=== PATIENT | male | born 1995 | race Caucasian/White ===

== ENCOUNTER 2018-10-06 13:51 | Emergency (ER) | payer SELFPAY ==
[~2018-10-06] VITALS: Ht 172.7 cm; Wt 68.0 kg
[~2018-10-06 13:51] MED LIST: ACHD5005 PO; ACNE MED; ALBU8.5H2 IH; AMOX-358 PO; AMOX500C2 PO; EPI PEN; HYDR25CA92 PO; HYOS0.1216 PO; IBUP-30 PO; IBUP200C14 PO; IBUP800T26 PO; LEVE500T PO; METH500T7 PO; NAPR-915 PO; NEOM10DR11 OT; ONDA4TAB11 PO; PROM25SU10 PR; RT-ALBUINH INH; [UNRECOGNIZED DRUG - CODE] OT; [UNRECOGNIZED DRUG - REMARK] TOP
[2018-10-06] MEDS ORDERED: AMOX-358 PO (14:20)
--- NOTE | 2018-10-06 14:20 | ED EENT ---
History of Present Illness General Chief Complaint: Head/Cervical Problems Stated Complaint: HEAD AND EAR PAIN Nursing Triage Note: PT PRESENTS TO ER WITH COMPLAINT OF HEADACHE AND EAR PAIN. Source: patient Exam Limitations: no limitations History of Present Illness Date Seen by Provider: Oct 06, 2018 Time Seen by Provider: 14:16 Initial Comments Patient is a 23-year-old male who presents to the emergency room with complaints of left earache is causing headache for the past week. He denies any fevers, nausea vomiting, neurological changes. Reports history of frequent ear infections as a child requiring tubes in his ears. Timing/Duration: last week Location: ear (L) Prearrival Treatment: no prearrival treatment Associated Symptoms: denies symptoms Allergies and Home Medications Allergies Coded Allergies: bee venom (honey bee) (Verified Allergy, Unknown, 04/12/15) Patient Home Medication List Home Medication List Reviewed: Yes Review of Systems Review of Systems Constitutional: see HPI; No chills, No fever Ears: See HPI, Pain (left ear) Neurological: See HPI, Headache All Other Systems Reviewed Negative Unless Noted: Yes Past Shqutmk-Ahcczk-Tjbkpo Hx Past Med/Social Hx: Reviewed Nursing Past Med/Soc Hx Patient Social History Alcohol Use: Denies Use Recreational Drug Use: No Smoking Status: Current Everyday Smoker Type Used: Cigarettes Recent Foreign Travel: No Contact w/Someone Who Travel: No Recent Infectious Disease Expo: No Recent Hopitalizations: No Immunizations Up To Date Tetanus Booster (TDap): More than 5yrs PED Vaccines UTD: Yes Date of Influenza Vaccine: Aug 21, 2013 Seasonal Allergies Seasonal Allergies: Yes Past Medical History Surgeries: Yes (BMT'S; CIRCUMCISION) Ear Surgery Respiratory: Yes (USES INHALER PRN) Asthma Currently Using CPAP: No Currently Using BIPAP: No Cardiac: Yes (CHRONIC CHEST WALL PAIN; SUBJECTIVE ARRHYTHMIA/PALPITATIONS) Angina Neurological: Yes Reproductive Disorders: No Sexually Transmitted Disease: No HIV/AIDS: No Gastrointestinal: No Ulcer Musculoskeletal: Yes (LEFT WRIST SALTER ARDON TYPE 4) Scoliosis, Fractures Endocrine: No Cancer: No Psychosocial: Yes Anxiety Integumentary: Yes (SEVERE CYSTIC ACNE) Blood Disorders: No Adverse Reaction/Blood Tranf: No Family Medical History Reviewed Nursing Family Hx FH: heart disease 19 FATHER Physical Exam Vital Signs Vital Signs - First Documented 10/06/18 14:10 Temp 97.2 Pulse 71 Resp 20 B/P (MAP) 126/62 (83) Pulse Ox 99 O2 Delivery Room Air Height, Weight, BMI Height: 5'8.00" Weight: 150lbs. 8.0oz. 68.864078go; 19.76 BMI Method:Stated General Appearance: WD/WN, no apparent distress Eyes: bilateral eye normal inspection, bilateral eye PERRL, bilateral eye EOMI Ears: right ear auricle normal, right ear canal normal, right ear TM normal; left ear tenderness, left ear TM red, left ear TM bulging Neck: non-tender, full range of motion, supple, normal inspection Cardiovascular: normal peripheral pulses, regular rate, rhythm, no edema, no gallop, no JVD, no murmur Respiratory: chest non-tender, lungs clear, normal breath sounds, no respiratory distress, no accessory muscle use Neurologic/Psychiatric: alert, normal mood/affect, oriented x 3 Skin: normal color, warm/dry Progress/Results/Core Measures Results/Orders Vital Signs/I&O 10/06/18 14:10 Temp 97.2 Pulse 71 Resp 20 B/P (MAP) 126/62 (83) Pulse Ox 99 O2 Delivery Room Air Blood Pressure Mean: 83 Departure Impression Primary Impression: Left otitis media Disposition: 01 HOME, SELF-CARE Condition: Stable/Unchanged Departure-Patient Inst. Decision time for Depature: 14:19 Referrals: NO,LOCAL PHYSICIAN (PCP/Family) Primary Care Physician Patient Instructions: Ear Infections (Otitis Media) (DC) Add. Discharge Instructions: Complete the entire course of antibiotics. You may use ibuprofen and Tylenol as directed by the bottle for pain relief. Follow-up with your primary care provider within 1 week for recheck. Return back to the emergency room for any worsening symptoms or concerns as needed. All discharge instructions reviewed with patient and/or family. Voiced understanding. Scripts Amoxicillin/Potassium Clav (Augmentin 875-125 Tablet) 1 Each Tablet 1 EACH PO BID for 14 Days, #14 TAB Prov: NAIF CALIX 10/06/18 NAIF CALIX Oct 06, 2018 14:20
[2018-10-06 14:30] VITALS: BP 126/62
[2018-10-06] MEDS ORDERED: HYDROcodone/APAP 5 MG/325 MG (LORTAB) TAB PO ONE (14:30)
== END 2018-10-06 14:30 | disposition home or self-care (01) ==
LOC: EDUNIT# 13:51 → ER 13:52
DX: H66.92 Otitis media, unspecified, left ear (principal); J45.909 Unspecified asthma, uncomplicated; F41.9 Anxiety disorder, unspecified; F17.210 Nicotine dependence, cigarettes, uncomplicated; Z98.890 Other specified postprocedural states; Z87.19 Personal history of other diseases of the digestive system; Z82.49 Family history of ischemic heart disease and other diseases of the circulatory system
CPT/HCPCS: 99283

== ENCOUNTER 2018-12-15 10:31 | Emergency (ER) | payer BC, OTHER ==
[~2018-12-15] VITALS: Ht 172.7 cm; Wt 68.3 kg
[2018-12-15] MEDS ORDERED: TRAM-42 PO (11:18)
--- NOTE | 2018-12-15 11:18 | ED Lower Extremity ---
General Chief Complaint: Lower Extremity Stated Complaint: L LEG PAIN Nursing Triage Note: PT STATES HIS DOG KNOCKED HIM DOWN SATURDAY AND HE FELL HURTING HIS LT LEG. PT AMBULATED TO RM 7 W/O ASSISTANCE. Nursing Sepsis Screen: No Definite Risk Source: patient Exam Limitations: no limitations History of Present Illness Date Seen by Provider: Dec 15, 2018 Time Seen by Provider: 11:13 Initial Comments To ER with reports of left leg pain. His dog knocked him down 2 days ago, he landed on the left hip and hit the left lower leg on a rock. He was able to get up and ambulate but he's had some persistent pain in the left hip and left lower leg and numbness in the left foot. Onset: other (2 days ago) Severity: moderate Pain/Injury Location: left leg Method of Injury: fell Modifying Factors: Worse With Movement Allergies and Home Medications Allergies Coded Allergies: bee venom (honey bee) (Verified Allergy, Unknown, 04/12/15) Home Medications Amoxicillin/Potassium Clav 1 Each Tablet, 1 EACH PO BID Prescribed by: NIAF CALIX on 10/06/18 1420 Patient Home Medication List Home Medication List Reviewed: Yes Review of Systems Constitutional: see HPI EENTM: see HPI Respiratory: no symptoms reported Cardiovascular: no symptoms reported Genitourinary: no symptoms reported Musculoskeletal: see HPI Skin: no symptoms reported Psychiatric/Neurological: No Symptoms Reported Past Rhygfak-Dtdmuw-Ilvttw Hx Patient Social History Alcohol Use: Denies Use Recreational Drug Use: No Smoking Status: Current Everyday Smoker Type Used: Cigarettes Recent Foreign Travel: No Contact w/Someone Who Travel: No Recent Infectious Disease Expo: No Recent Hopitalizations: No Immunizations Up To Date Tetanus Booster (TDap): More than 5yrs PED Vaccines UTD: Yes Date of Influenza Vaccine: Aug 21, 2013 Seasonal Allergies Seasonal Allergies: Yes Past Medical History Surgeries: Yes (BMT'S; CIRCUMCISION) Ear Surgery Respiratory: Yes (USES INHALER PRN) Asthma Currently Using CPAP: No Currently Using BIPAP: No Cardiac: Yes (CHRONIC CHEST WALL PAIN; SUBJECTIVE ARRHYTHMIA/PALPITATIONS) Angina Neurological: Yes Reproductive Disorders: No Sexually Transmitted Disease: No HIV/AIDS: No Gastrointestinal: No Ulcer Musculoskeletal: 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 8.0oz. 68.463158du; 19.76 BMI Method:Stated General Appearance: WD/WN, no apparent distress Neck: non-tender, full range of motion Hips: right hip non-tender; left hip normal inspection, left hip normal range of motion, left hip pain, left hip other (no ecchymosis or swelling) Legs: left leg normal inspection, left leg normal range of motion, left leg other (left lateral fibula is tender to palpation but there is no ecchymosis deformity or swelling) Knees: bilateral knee non-tender, bilateral knee normal inspection, bilateral knee normal range of motion Ankles: bilateral ankle non-tender, bilateral ankle normal inspection, bilateral ankle normal range of motion Feet: bilateral foot non-tender, bilateral foot normal inspection, bilateral foot normal range of motion Neurologic/Psychiatric: alert, normal mood/affect, oriented x 3 Skin: normal color, warm/dry Progress/Results/Core Measures Results/Orders My Orders Orders - DIONI RIOS APRN Hip, Left, 2 Views (12/15/18 11:13) Tibia/Fibula, Left, 2 Views (12/15/18 11:13) Vital Signs/I&O 12/15/18 10:46 Temp 97.2 Pulse 81 Resp 18 B/P (MAP) 127/85 (99) Pulse Ox 100 O2 Delivery Room Air Blood Pressure Mean: 99 Departure Impression Primary Impression: Contusion of hip Qualified Codes: S70.02XA - Contusion of left hip, initial encounter Additional Impression: Leg pain Qualified Codes: M79.605 - Pain in left leg Disposition: 01 HOME, SELF-CARE Condition: Stable Departure-Patient Inst. Decision time for Depature: 11:17 Referrals: NO,LOCAL PHYSICIAN (PCP/Family) Primary Care Physician Patient Instructions: Contusion (DC) Add. Discharge Instructions: 1. Return to ER for any concerns 2. Follow-up with your doctor later this week for recheck All discharge instructions reviewed with patient and/or family. Voiced understanding. Scripts Tramadol HCl (Ultram) 50 Mg Tablet 50 MG PO Q6H PRN for PAIN-MODERATE TO SEVERE, #10 TAB Prov: DIONI RIOS APRN 12/15/18 DIONI RIOS APRN Dec 15, 2018 11:18
--- NOTE | 2018-12-15 11:57 | Diagnostic Imaging Report ---
INDICATION: Fall FINDINGS: There is no fracture, dislocation or acute appearing articular incongruity. IMPRESSION: No acute appearing abnormality. Dictated by: Dictated on workstation # [id number]
[2018-12-15 12:33] VITALS: BP 127/85
--- NOTE | 2018-12-15 12:38 | Diagnostic Imaging Report ---
INDICATION: Injury with pain. FINDINGS: Femoral head is directed into the acetabulum. No fracture or dislocation. The obturator ring is intact. No avulsion. IMPRESSION: Unremarkable two-view left hip. Dictated by: Dictated on workstation # [id number]
== END 2018-12-15 12:33 | disposition home or self-care (01) ==
LOC: EDUNIT# 10:31 → ER 10:32
DX: S70.02XA Contusion of left hip, initial encounter (principal); M79.605 Pain in left leg; J45.909 Unspecified asthma, uncomplicated; M41.9 Scoliosis, unspecified; F41.9 Anxiety disorder, unspecified; F17.210 Nicotine dependence, cigarettes, uncomplicated; Z82.49 Family history of ischemic heart disease and other diseases of the circulatory system; Z87.19 Personal history of other diseases of the digestive system; Z98.890 Other specified postprocedural states; W18.31XA Fall on same level due to stepping on an object, initial encounter; W22.09XA Striking against other stationary object, initial encounter
CPT/HCPCS: 73502; 73590

== ENCOUNTER 2020-04-10 07:37 | Emergency (ER) | payer BC ==
[~2020-04-10] VITALS: Ht 172.7 cm; Wt 63.5 kg
[~2020-04-10 07:37] MED LIST changes: +TRAM-42 PO
--- NOTE | 2020-04-10 08:26 | ED Upper Extremity ---
General Chief Complaint: Upper Extremity Stated Complaint: L HAND PAIN Nursing Triage Note: PT AMB TO RM 6 WITH COMPLAINT LEFT WRIST PAIN. STATES WAS MOVING FURNITURE ON SATURDAY AND BEGAN NOT BEING ABLE TO MOVE FINGERS SATURDAY NIGHT. DENIES HITTING EXTREMITY ON ANYTHING. STATES TOOK A MUSCLE RELAXER YESTERDAY AND HAD NO RELIEF. Nursing Sepsis Screen: No Definite Risk Source: patient Exam Limitations: no limitations History of Present Illness Date Seen by Provider: Apr 10, 2020 Time Seen by Provider: 08:15 Initial Comments Pt to ER by [facility] with CC LEft hand pain, loss of ROM x 2 days. Moving furniture but no trauma on Saturday. Previous two fractures 5th metacarpral 2 + years ago. No Fever chills soa. Took flexaril yesterday without relief. No APAP or NSAIDS Allergies and Home Medications Allergies Coded Allergies: bee venom (honey bee) (Verified Allergy, Unknown, 04/12/15) Home Medications Amoxicillin/Potassium Clav 1 Each Tablet, 1 EACH PO BID Prescribed by: NAIF CALIX on 10/06/18 1420 Naproxen 500 Mg Tablet, 500 MG PO BID Prescribed by: TOM GRAYSON on 04/10/20 0833 Tramadol HCl 50 Mg Tablet, 50 MG PO Q6H PRN for PAIN-MODERATE TO SEVERE Prescribed by: DIONI RIOS on 12/15/18 1118 Patient Home Medication List Home Medication List Reviewed: Yes Review of Systems Constitutional: No chills, No fever EENTM: No ear discharge, No ear pain Respiratory: No cough, No short of breath Cardiovascular: No chest pain, No edema Gastrointestinal: No abdominal pain, No nausea All Other Systems Reviewed Negative Unless Noted: Yes Past Rdnnnrl-Qdungx-Rndujo Hx Patient Social History Alcohol Use: Denies Use Recreational Drug Use: Yes Drug of Choice: marijuana Type Used: Cigarettes Recent Foreign Travel: No Contact w/Someone Who Travel: No Recent Infectious Disease Expo: No Recent Hopitalizations: No Immunizations Up To Date Tetanus Booster (TDap): More than 5yrs PED Vaccines UTD: Yes Date of Influenza Vaccine: Aug 21, 2013 Seasonal Allergies Seasonal Allergies: Yes Past Medical History Surgeries: Yes (BMT'S; CIRCUMCISION) Ear Surgery Respiratory: Yes (USES INHALER PRN) Asthma Currently Using CPAP: No Currently Using BIPAP: No Cardiac: Yes (CHRONIC CHEST WALL PAIN; SUBJECTIVE ARRHYTHMIA/PALPITATIONS) Angina Neurological: Yes Reproductive Disorders: No Sexually Transmitted Disease: No HIV/AIDS: No Gastrointestinal: No Ulcer Musculoskeletal: 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 8.0oz. 68.560600ng; 21.00 BMI Method:Stated General Appearance: WD/WN, no apparent distress HEENT: PERRL/EOMI, pharynx normal Neck: full range of motion, normal inspection Cardiovascular: normal peripheral pulses, regular rate, rhythm Respiratory: no respiratory distress, no accessory muscle use Shoulder: normal inspection, non-tender, no evidence of injury, normal ROM Elbow/Forearm: normal inspection, normal ROM, Left, pain (distal left forearm to squeeze.) Hand: normal inspection, Left, bone tenderness (4-5 metacarprals), limited ROM, soft tissue tenderness, stiffness Neurologic/Tendon: normal sensation, responds to pain Neurologic/Psychiatric: no motor/sensory deficits, alert, normal mood/affect, oriented x 3 Skin: normal color, warm/dry Progress/Results/Core Measures Results/Orders My Orders Orders - TOM GRAYSON Hand, Left, 3 Views (04/10/20 08:14) Vital Signs/I&O 04/10/20 07:52 Temp 36.4 Pulse 78 Resp 20 B/P (MAP) 134/77 (96) Pulse Ox 99 O2 Delivery Room Air Blood Pressure Mean: 96 Progress Progress Note : Time: 08:27 Progress Note FX, Sprain/Strain? XR, RICE, Splint x 1 week, NSAIDS and F/U with PCP if no improvement. Diagnostic Imaging Diagonstic Imaging: Xray Plain Films/CT/US/NM/MRI: hand (Left) Comments Old styloid Fx seen on 2014 film. Previous healed 5th digit proximal phalanx fracure deformity. No acute osseus abnormality. NAME: ANNABELLE VALLADARES [facility] REC#: [id number] PT STATUS: REG ER : 1995 PHYSICIAN: TOM GRAYSON MD ADMIT DATE: 04/10/20/ER Draft Date of Exam:04/10/20 HAND, LEFT, 3 VIEWS HISTORY: Left hand injury with pain in the left 5th metacarpal. COMPARISON: 06/23/2014 TECHNIQUE: 3 views of the left hand FINDINGS: No acute fracture or dislocation is seen in the left hand. There is deformity of the left 5th finger proximal phalanx which appears to be from an old trauma. There is persistent flexion of the fingers throughout the exam. Alignment otherwise appears normal. Joint spaces are preserved. There is an old nonunited fracture of the left ulnar styloid process. IMPRESSION: 1. Sequela from old trauma to the left hand with no acute osseous abnormality seen. Dictated on workstation # [id number] Dict: 04/10/20 0838 Trans: 04/10/20 0843 [facility] [id number] Interpreted by: CORY NARANJO MD Electronically signed by: Reviewed: Reviewed by Me Departure Impression Primary Impression: Left hand pain Disposition: 01 HOME, SELF-CARE Condition: Stable Departure-Patient Inst. Decision time for Depature: 08:30 Referrals: NO,LOCAL PHYSICIAN (PCP/Family) Primary Care Physician Patient Instructions: Hand Pain (DC) Add. Discharge Instructions: Wear the splint for the next 1-2 weeks. Take off to bathe and ice. Ice the hand for 1 day, 20 minutes on every 2 hours. Elevate the hand above your heart for swelling or pain. Limit use of hand until pain improves. You may down grade the splint to an elastic wrap in 1 week. Naproxen 500 mg twice a day for 1-2 weeks until pain is gone. Tylenol 1000 mg every 8 hours as needed for breakthrough pain. If not seeing any improvement in 1 week then follow up with your primary doctor for re-evaluation and management. All discharge instructions reviewed with patient and/or family. Voiced understanding. Scripts Naproxen (Naprosyn) 500 Mg Tablet 500 MG PO BID for 14 Days, #30 TAB 0 Refills Prov: TOM GRAYSON 04/10/20 Work/School Note: Work Release Form Date Seen in the Emergency Department: Apr 10, 2020 Return to Work: Apr 11, 2020 Restrictions: Need Release from Doctor Other Restrictions Listed Below: No lift, push or pull more than 5 pounds with the left hand until 04/18/20 TOM GRAYSON Apr 10, 2020 08:26
[2020-04-10] MEDS ORDERED: NAPR-1071 PO (08:33)
--- NOTE | 2020-04-10 08:43 | Diagnostic Imaging Report ---
HISTORY: Left hand injury with pain in the left 5th metacarpal. COMPARISON: 06/23/2014 TECHNIQUE: 3 views of the left hand FINDINGS: No acute fracture or dislocation is seen in the left hand. There is deformity of the left 5th finger proximal phalanx which appears to be from an old trauma. There is persistent flexion of the fingers throughout the exam. Alignment otherwise appears normal. Joint spaces are preserved. There is an old nonunited fracture of the left ulnar styloid process. IMPRESSION: 1. Sequela from old trauma to the left hand with no acute osseous abnormality seen. Dictated by: Dictated on workstation # [id number]
[2020-04-10 08:59] VITALS: BP 112/76
== END 2020-04-10 09:01 | disposition home or self-care (01) ==
LOC: EDUNIT# 07:37 → ER 07:38
DX: M79.642 Pain in left hand (principal); Z82.49 Family history of ischemic heart disease and other diseases of the circulatory system; Z87.81 Personal history of (healed) traumatic fracture
CPT/HCPCS: 73130

== ENCOUNTER → 2020-04-27 | Outpatient (CLI) | payer BC ==
[~2020-04-27] VITALS: Ht 172.7 cm; Wt 63.6 kg
[~2020-04-27] MED LIST changes: +CATHETER FLUSH 10 ML SYR IV PRN; +GADOBUTROL 7.5 MMOL/7.5 ML (GADAVIST) VIAL IV ONE; +IOHEXOL 300 MG/ML 50 ML (OMNIPAQUE 300) VIAL IV ONE; +NAPR-1071 PO
--- NOTE | 2020-04-27 14:25 | Diagnostic Imaging Report ---
INDICATION: Left wrist pain. TECHNIQUE: The patient was brought to the procedure room and placed on the table in the prone position. The dorsum of the left wrist was prepped and draped in the usual sterile fashion. A small amount of 1% lidocaine was utilized for local anesthesia. A 25-gauge butterfly needle was utilized and placed with its tip along the dorsum of the midportion of the scaphoid. A mixture of iodinated contrast, normal saline, and gadolinium was injected under fluoroscopic observation. 1 minute and 3 seconds of fluoroscopic time was utilized during injection as well as ranging of the wrist to ensure adequate migration of the contrast throughout the radiocarpal space. The needle was withdrawn and hemostasis was obtained using manual compression. The patient tolerated the procedure well and was sent to MRI in satisfactory condition. IMPRESSION: Successful fluoroscopically assisted left wrist injection for MRI, as described. Dictated by: Dictated on workstation # [id number]
--- NOTE | 2020-04-27 14:52 | Diagnostic Imaging Report ---
EXAMINATION: Magnetic resonance imaging of the left wrist with intra-articular contrast. DATE: April 27, 2020. COMPARISON: Left wrist arthrogram April 27, 2020. Left hand radiographs April 10, 2020. Left wrist radiographs June 23, 2014. HISTORY: 25-year-old male, injury moving furniture. Ulnar-sided wrist pain extending to the region of the left fifth metacarpal. TECHNIQUE: Magnetic Resonance Imaging sequences were performed of the wrist following the intra-articular administration of contrast. FINDINGS: TRIANGULAR FIBROCARTILAGE COMPLEX: The triangular fibrocartilage disc, dorsal radioulnar ligament, volar radioulnar ligament, ulnolunate ligament, ulnotriquetral ligament, extensor carpi ulnaris tendon and sheath, and meniscal homologue are intact. INTRINSIC LIGAMENTS: The scapholunate and lunotriquetral ligaments are intact. JOINTS: The radiocarpal, intercarpal, and distal radioulnar joints are intact. There is no joint effusion. CARPAL TUNNEL: The flexor retinaculum is unremarkable. The flexor digitorum superficialis and profundus are intact. The median nerve is unremarkable. FLEXOR TENDONS: The flexor carpi ulnaris, flexor pollicis longus, and carpi radialis are intact. EXTENSOR TENDONS: There is fluid in the second and third extensor compartments which is normal following arthrogram procedure. Additional evaluation of the extensor tendons is unremarkable. BONE: There is a nonunited remote prior fracture of the ulnar styloid again noted. There is no adjacent marrow edema. There is no acute fracture, bone contusion, evidence of osteonecrosis, or other bone marrow signal abnormality. BURSAE AND SOFT TISSUES: The bursae and soft tissues surrounding the wrist are within normal limits. IMPRESSION: 1. Remote prior nonunited fracture involving the base of the ulnar styloid without adjacent marrow edema. 2. Intact triangular fibrocartilage complex and intrinsic wrist ligaments. 3. Intact tendons. 4. No acute fracture, bone contusion, or other bone marrow signal abnormality. 5. Unremarkable joint evaluation. Dictated by: Dictated on workstation # [id number]
== END ==
LOC: RAD 12:43
PROVIDERS: ATTEND Nurse Practitioner
DX: S66.395 Other injury of extensor muscle, fascia and tendon of left ring finger at wrist and hand level (principal)
CPT/HCPCS: 25246; 73115; 73222

== ENCOUNTER 2022-01-02 12:59 | Emergency (ER) | payer OTHER ==
[~2022-01-02] VITALS: Ht 35.7 cm; Wt 63.0 kg
[~2022-01-02 12:59] MED LIST changes: -CATHETER FLUSH 10 ML SYR IV PRN; -GADOBUTROL 7.5 MMOL/7.5 ML (GADAVIST) VIAL IV ONE; -IOHEXOL 300 MG/ML 50 ML (OMNIPAQUE 300) VIAL IV ONE; +METH-731 PO; -METH500T7 PO
[2022-01-02 13:05] VITALS: BP 137/79
[2022-01-02] MEDS ORDERED: TETRACAINE 0.5% OPHTH SOLN 4 ML BTL (SINGLE DOSE ONLY) OP ONE (13:45)
--- NOTE | 2022-01-02 13:52 | ED Headache ---
General Chief Complaint: Head/Cervical Problems Stated Complaint: HEADACHE - VISION LOSS Nursing Triage Note: ARRIVED VIA AMB WITH COMPLAINTS OF A HEADACHE THAT STARTED LAST MONTH WITH VISION CHANGES. BOTH PARENTS HAVE RECENTLY OF A BRAIN TUMOR. Source: patient Exam Limitations: no limitations (ROMAN STEIN MED STUDENT) History of Present Illness Date Seen by Provider: Jan 02, 2022 Time Seen by Provider: 13:45 Initial Comments This is an otherwise healthy 26 YO male presenting to the ED with headache and left eye blurriness starting this morning. Pt felt normal when he went to bed at 11:30 last night but when he woke up this morning when his alarm went off at 5:15, he had a pounding headache in his left synagogue radiating to his left forehead. Also has been having blurry vision in the left half of his left eye that has been waxing and waning in intensity. Notes that he feels dizzy and off- balance but is able to ambulate unassisted. No improvement in the pain with Tylenol or Ibuprofen. Denies N/V, CP, SOB, numbness, tingling, or weakness. Pt also says that he had loss of vision in the left lower part of his left eye that he never sought medical care for and has been present ever since. No hx migraines or headaches similar to this. COVID vaccinated but not flu vaccinated. Pt says he is worried because both of his parents recently of meningiomas. Prior Headaches/Recent Trauma: no recent headache/trauma Associated Symptoms: vision changes (ROMAN STEIN MED STUDENT) Initial Comments Patient describes 2 distinct episodes of visual changes. He notes about a month ago a sudden loss of approximately 10% of the lower lateral field of vision of the left eye only. This seems to now be a fixed deficit over the past month. Today he developed a blurry vision of the remaining left half of the field of vision of the left eye only. Vision out of the right eye appears normal. He has had associated headache. Neuro exam is otherwise unremarkable. He denies any injury to the eye. The eye itself is not very painful. He describes a vague discomfort of the eye but no pain with movement or blinking. He is not photophobic. Pupils are equally round and reactive. Patient has heightened concern today because both of his parents within the past 6 months from brain tumors. (RADHA BUCKNER MD) Allergies and Home Medications Allergies Coded Allergies: venom-honey bee (Verified Allergy, Unknown, 04/12/15) Patient Home Medication List Home Medication List Reviewed: Yes (RADHA BUCKNER MD) Amoxicillin/Potassium Clav (Augmentin 875-125 Tablet) 1 Each Tablet, 1 EACH PO BID Prescribed by: NAIF CALIX on 10/06/18 1420 Naproxen (Naprosyn) 500 Mg Tablet, 500 MG PO BID Prescribed by: TOM GRAYSON on 04/10/20 0833 Tramadol HCl (Ultram) 50 Mg Tablet, 50 MG PO Q6H PRN for PAIN-MODERATE TO SEVERE Prescribed by: DOINI RIOS on 12/15/18 1118 Review of Systems Review of Systems Constitutional: No chills, No fever Eyes: Blurred Vision, Vision Changes Ears, Nose, Mouth, Throat: denies ear pain, denies ear discharge Respiratory: No cough, No short of breath Cardiovascular: No chest pain, No palpitations Gastrointestinal: No nausea, No vomiting Genitourinary: no symptoms reported Musculoskeletal: back pain, joint pain Skin: No pruritus, No rash Psychiatric/Neurological: See HPI, Headache; Denies Numbness, Denies Tingling, Denies Weakness (ROMAN STEIN MED STUDENT) All Other Systems Reviewed Negative Unless Noted: Yes (Negative excepted noted.) (ROMAN STEIN MED STUDENT) Past Ithzmhm-Bbaywu-Gnfbye Hx Patient Social History Use of E-Cig and/or Vaping dev: Yes Substance use?: Yes 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 Alcohol Use?: No (ROMAN STEIN MED STUDENT) Immunizations Up To Date Tetanus Booster (TDap): More than 5yrs PED Vaccines UTD: Yes Second COVID19 Vaccination Liu: unknown date COVID19 Vaccine [place] Aide: moderna (ROMAN STEIN MED STUDENT) Seasonal Allergies Seasonal Allergies: Yes (ROMAN STEIN MED STUDENT) Past Medical History Surgeries: Yes (BMT'S; CIRCUMCISION) Ear Surgery Respiratory: Yes (USES INHALER PRN) Asthma Currently Using CPAP: No Currently Using BIPAP: No Cardiac: Yes (CHRONIC CHEST WALL PAIN; SUBJECTIVE ARRHYTHMIA/PALPITATIONS) Angina Neurological: Yes Reproductive Disorders: No Sexually Transmitted Disease: No HIV/AIDS: No Gastrointestinal: No Ulcer 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 8.0oz. 68.580668wn; 494.00 BMI Method:Stated General Appearance: WD/WN, no apparent distress HEENT: PERRL/EOMI, normal ENT inspection; No scleral icterus (R), No scleral icterus (L), No pale conjunctivae (R), No pale conjunctivae (L); other (moist mucous membranes) Neck: full range of motion, normal inspection Cardiovascular: regular rate, rhythm, no murmur Respiratory: lungs clear, normal breath sounds, no respiratory distress, no accessory muscle use Gastrointestinal: non tender, soft; No distended Extremities: normal range of motion, normal inspection Psychiatric: alert, oriented x 3 Crainal Nerves: normal hearing, normal speech, PERRL; No abnormal eye position, No abnormal pupil position, No abnormal speech, No facial asymmetry, No facial droop, No facial paresthesias, No facial weakness, No gaze palsy, No tongue deviation to R; other (cranial nerves II-XII intact) Coordination/Gait: normal finger to nose, normal gait, other (normal heel to robles) Motor/Sensory: no motor deficit, no sensory deficit Skin: normal color, warm/dry Lymphatic: no adenopathy (ROMAN STEIN MED STUDENT) Progress/Results/Core Measures Results/Orders Lab Results Laboratory Tests Test 01/02/22 13:49 Range/Units White Blood Count 5.9 4.3-11.0 10^3/uL Red Blood Count 5.54 H 4.30-5.52 10^6/uL Hemoglobin 13.8 13.3-17.7 g/dL Hematocrit 43 40-54 % Mean Corpuscular Volume 77 L 80-99 fL Mean Corpuscular Hemoglobin 25 25-34 pg Mean Corpuscular Hemoglobin Concent 33 32-36 g/dL Red Cell Distribution Width 13.6 10.0-14.5 % Platelet Count 267 130-400 10^3/uL Mean Platelet Volume 10.5 9.0-12.2 fL Immature Granulocyte % (Auto) 0 % Neutrophils (%) (Auto) 58 42-75 % Lymphocytes (%) (Auto) 25 12-44 % Monocytes (%) (Auto) 12 0-12 % Eosinophils (%) (Auto) 4 0-10 % Basophils (%) (Auto) 1 0-10 % Neutrophils # (Auto) 3.4 1.8-7.8 10^3/uL Lymphocytes # (Auto) 1.5 1.0-4.0 10^3/uL Monocytes # (Auto) 0.7 0.0-1.0 10^3/uL Eosinophils # (Auto) 0.3 0.0-0.3 10^3/uL Basophils # (Auto) 0.0 0.0-0.1 10^3/uL Immature Granulocyte # (Auto) 0.0 0.0-0.1 10^3/uL Prothrombin Time 13.3 12.2-14.7 SEC INR Comment 1.0 0.8-1.4 Activated Partial Thromboplast Time 28 24-35 SEC D-Dimer <= 0.27 0.00-0.49 UG/ML Sodium Level 141 135-145 MMOL/L Potassium Level 3.4 L 3.6-5.0 MMOL/L Chloride Level 105 98-107 MMOL/L Carbon Dioxide Level 23 21-32 MMOL/L Anion Gap 13 5-14 MMOL/L Blood Urea Nitrogen 16 7-18 MG/DL Creatinine 0.84 0.60-1.30 MG/DL Estimat Glomerular Filtration Rate 125 BUN/Creatinine Ratio 19 Glucose Level 103 70-105 MG/DL Calcium Level 9.4 8.5-10.1 MG/DL Corrected Calcium 9.3 8.5-10.1 MG/DL Total Bilirubin 0.3 0.1-1.0 MG/DL Aspartate Amino Transf (AST/SGOT) 18 5-34 U/L Alanine Aminotransferase (ALT/SGPT) 23 0-55 U/L Alkaline Phosphatase 72 40-136 U/L Troponin I < 0.028 <0.028 NG/ML Total Protein 7.1 6.4-8.2 GM/DL Albumin 4.1 3.2-4.5 GM/DL (RADHA BUCKNER MD) My Orders Orders - RADHA BUCKNER MD Ct Head Wo-R/O Stroke (01/02/22 13:42) Ct Angio Head/Neck (01/02/22 13:42) Cbc With Automated Diff (01/02/22 13:42) Comprehensive Metabolic Panel (01/02/22 13:42) Ed Iv/Invasive Line Start (01/02/22 13:42) Tetracaine 0.5% Ophth Zoie Sdv (Tetracai (01/02/22 13:45) Protime With Inr (01/02/22 13:44) Partial Thromboplastin Time (01/02/22 13:44) Fibrin Degradation Products (01/02/22 13:44) Troponin I [place] (01/02/22 13:44) Chest 1 View, Ap/Pa Only (01/02/22 13:44) Ekg Tracing (01/02/22 13:44) Nothing By Mouth (01/02/22 Lunch) Vital Signs Stroke Patient Q15M (01/02/22 13:44) Intake & Output 06,14,22 (01/02/22 13:44) Monitor-Rhythm Ecg Trace Only (01/02/22 13:44) Dysphagia Screening Tool Q10MX1 (01/02/22 13:44) Iohexol Injection (Omnipaque 350 Mg/Ml 1 (01/02/22 14:15) Received Contrast (Hold Metformin- Contr (01/02/22 14:15) Ns (Ivpb) (Sodium Chloride 0.9% Ivpb Bag (01/02/22 14:15) Tropicamide 1% Ophthalmic Soln (Mydriacy (01/02/22 14:45) Ketorolac Injection (Toradol Injection) (01/02/22 15:00) Hs C Reactive Protein (01/02/22 15:26) Erythrocyte Sedimentation Rate (01/02/22 15:26) (RADHA BUCKNER MD) Medications Given in ED Current Medications Medications Dose Ordered Sig/Ten Route Start Time Stop Time Status Last Admin Dose Admin Iohexol 75 ml ONCE ONCE IV 01/02/22 14:15 01/02/22 14:16 DC 01/02/22 14:12 75 ML Ketorolac Tromethamine 15 mg ONCE ONCE IVP 01/02/22 15:00 01/02/22 15:01 DC 01/02/22 14:59 15 MG Sodium Chloride 100 ml ONCE ONCE IV 01/02/22 14:15 01/02/22 14:16 DC 01/02/22 14:13 80 ML Tetracaine HCl 1 OR 2 DROPS INTO AFFEC... ONCE ONCE OP 01/02/22 13:45 01/02/22 13:46 DC 01/02/22 13:51 1 ML Tropicamide 1 ml ONCE ONCE OU 01/02/22 14:45 01/02/22 14:46 DC 01/02/22 14:59 1 ML (RADHA BUCKNER MD) Vital Signs/I&O 01/02/22 13:05 Temp 35.7 Pulse 63 Resp 16 B/P (MAP) 137/79 (98) Pulse Ox 100 O2 Delivery Room Air (RADHA BUCKNER MD) Blood Pressure Mean: 98 Progress Progress Note : Time: 15:30 Progress Note Because of the abrupt nature of the 2 episodes of vision change and patient's parenteral history of brain tumors, aggressive work-up was pursued including CT and CT angio of the head and neck. Work-up was grossly unremarkable. Reese-Pen was used to measure intraocular pressure of the left eye which was 17. Toradol 15 mg IV was given for pain control. Dr. Nichols at the [facility] clinic was contacted and graciously agreed to see the patient in her clinic this afternoon. She requested tropicamide be administered for dilation before he leaves the ER. 2 drops were administered in each eye. Patient was instructed to go directly to her clinic. ESR and CRP were ordered prior to patient departure but were not resulted yet at that time. A [employer] etiology is unlikely given the monocular nature of his symptoms and the negative work-up in the ER. Patient is being sent to the pain medicine physician for evaluation of a peripheral pathology. (RADHA BUCKNER MD) Initial ECG Impression Date: Jan 02, 2022 Initial ECG Impression Time: 14:31 Initial ECG Rate: 61 Initial ECG Rhythm: Normal Sinus Initial ECG Intervals: Normal Initial ECG Impression: Normal Comment Normal sinus rhythm with no ST elevation or depression. No abnormal intervals or axis deviation. (RADHA BUCKNER MD) Diagnostic Imaging Diagonstic Imaging: CT Plain Films/CT/US/NM/MRI: head Comments NAME: ANNABELLE VALLADARES [facility] REC#: [id number] PT STATUS: REG ER : 1995 PHYSICIAN: RADHA BUCKNER MD ADMIT DATE: 01/02/22/ER Draft Date of Exam:01/02/22 CT HEAD WO-R/O STROKE PROCEDURE: CT head wo r/o stroke. TECHNIQUE: Multiple contiguous axial images were obtained through the brain without the use of intravenous contrast. Auto Exposure Controls were utilized during the CT exam to meet ALARA standards for radiation dose reduction. INDICATION: Headache and visual changes. COMPARISON: Prior head CT from 04/19/2016. FINDINGS: The ventricles and sulci are within normal limits. No sulcal effacement or midline shift is identified. No acute intra-axial or extra-axial hemorrhage is detected. The cisterns are patent. The visualized paranasal sinuses are clear apart from a mucous retention cyst or polyp in the left maxillary sinus. IMPRESSION: No acute intracranial process is detected. Dictated on workstation # [id number] Dict: 01/02/22 1414 Trans: 01/02/22 1418 [id number] Interpreted by: LANA PARRA MD Diagonstic Imaging: CT Plain Films/CT/US/NM/MRI: other (Angiogram head and neck) Comments NAME: ANNABELLE VALLADARES MED REC#: [id number] PT STATUS: REG ER : 1995 PHYSICIAN: RADHA BUCKNER MD ADMIT DATE: 01/02/22/ER Draft Date of Exam:01/02/22 CT ANGIO HEAD/NECK PROCEDURE: CT angiography of the head and CT angiography of the neck with and without contrast. TECHNIQUE: Contiguous noncontrast images were obtained from the skull base through the vertex. After intravenous contrast administration, helical CT angiography of the neck was performed. Source data was reformatted into 3D MIP projections. Delayed post contrast acquisition was also obtained. Auto Exposure Controls were utilized during the CT exam to meet ALARA standards for radiation dose reduction. INDICATION: Headache and visual changes. FINDINGS: Delayed post contrast images through the brain show no enhancing lesion. CT angiographic portion of the exam demonstrates a three-vessel branching pattern to the aortic arch. The right common carotid artery is widely patent. Left common carotid artery is widely patent. Both carotid bifurcations are unremarkable. The right and left internal carotid arteries are widely patent. The M1 and M2 segments of both the right and left middle cerebral arteries are widely patent. No large vessel occlusion is seen. There is no thromboembolism. Right and left anterior cerebral arteries are widely patent. Right and left posterior cerebral arteries are patent. The left vertebral artery is dominant. Both the right and left vertebral arteries are widely patent. No definite aneurysm or vascular malformation is identified. IMPRESSION: Unremarkable CT angiogram of the head and neck. Dictated on workstation # [id number] Dict: 01/02/22 1416 Trans: 01/02/221425 AS6 [id number] Interpreted by: LANA PARRA MD Diagonstic Imaging: Xray Plain Films/CT/US/NM/MRI: chest Comments NAME: ANNABELLE VALLADARES MED REC#: [id number] PT STATUS: REG ER : 1995 PHYSICIAN: RADHA BUCKNER MD ADMIT DATE: 01/02/22/ER Draft Date of Exam:01/02/22 CHEST 1 VIEW, AP/PA ONLY INDICATION: Headache and visual changes. TIME OF EXAM: 02:17 p.m. COMPARISON: Correlation is made with prior chest from 04/19/2016. FINDING: The heart size is normal. The pulmonary vascularity is unremarkable. The lungs are clear. No infiltrate, effusion or pneumothorax is detected. IMPRESSION: No acute cardiopulmonary process is detected. Dictated on workstation # [id number] Dict: 01/02/22 1424 Trans: 01/02/22 142 AS6 [id number] Interpreted by: LANA PARRA MD (RADHA BUCKNER MD) Departure Impression Primary Impression: Monocular vision loss Additional Impression: Acute headache Qualified Codes: R51.9 - Headache, unspecified Disposition: 01 HOME, SELF-CARE Condition: Stable Departure-Patient Inst. Decision time for Depature: 15:20 (RADHA BUCKNER MD) Referrals: GATO WRIGHT OD,LOCAL PHYSICIAN (PCP) Primary Care Physician Patient Instructions: Headache, Adult (DC) Add. Discharge Instructions: Go directly to the [facility] clinic. Do not take any medications or stop anywhere else on the way. They are expecting you promptly. Call with questions or concerns or any follow-up that you need from the ER. All discharge instructions reviewed with patient and/or family. Voiced understanding. Medical Student Attestation and Attending Note: I have personally interviewed and examined this patient along with Roman Stein, MS 4. I have reviewed student documentation including history, physical, and assessments. I agree with the documentation except where otherwise noted. Exam: General: Alert, oriented, no acute distress, well developed HEENT: Normocephalic and atraumatic, eyes grossly normal to exam, there is a small punctate black spot over the left cornea of uncertain depth or characteristic, pupils equally round and reactive to light, no photophobia, nor mal red reflex Heart: Regular rate and rhythm without murmur Lungs: Clear to auscultation bilaterally with normal effort Abdomen: Soft, nontender, nondistended, normal bowel sounds Neuropsych: Alert, oriented, left lateral visual field deficit of the left eye only, otherwise no focal deficits Skin: Warm and dry without rashes (RADHA BUCKNER MD) Copy Copies To 1: GATO WRIGHT OD, CHRISTINE MED STUDENT Jan 02, 2022 13:52 RADHA BUCKNER MD Jan 02, 2022 15:22
[2022-01-02 13:56] LABS: BASOPHILS % (AUTO) 1 % (0-10); EOSINOPHILS # (AUTO) 0.3 10^3/uL (0.0-0.3); EOSINOPHILS % (AUTO) 4 % (0-10); HEMATOCRIT 43 % (40-54); HEMOGLOBIN 13.8 g/dL (13.3-17.7); LYMPHOCYTES # (AUTO) 1.5 10^3/uL (1.0-4.0); LYMPHOCYTES % (AUTO) 25 % (12-44); MEAN CORPUSCULAR HEMOGLOBIN 25 pg (25-34); MEAN CORPUSCULAR HGB CONC 33 g/dL (32-36); MEAN CORPUSCULAR VOLUME 77 fL (80-99); MEAN PLATELET VOLUME 10.5 fL (9.0-12.2); MONOCYTES # (AUTO) 0.7 10^3/uL (0.0-1.0); MONOCYTES % (AUTO) 12 % (0-12); NEUTROPHILS # (AUTO) 3.4 10^3/uL (1.8-7.8); NEUTROPHILS % (AUTO) 58 % (42-75); PLATELET COUNT 267 10^3/uL (130-400); WHITE BLOOD COUNT 5.9 10^3/uL (4.3-11.0)
[2022-01-02] MEDS ORDERED: FLUORESCEIN (FLUOR-I-STRIPS) 1 MG STRP OU ONE (14:00)
[2022-01-02] MEDS ORDERED: BSS 15 ML IR ONE (14:00)
[2022-01-02 14:08] LABS: ALBUMIN 4.1 GM/DL (3.2-4.5); CHLORIDE 105 MMOL/L (98-107); POTASSIUM 3.4 MMOL/L (3.6-5.0); SODIUM 141 MMOL/L (135-145)
[2022-01-02 14:10] LABS: CALCIUM 9.4 MG/DL (8.5-10.1)
[2022-01-02 14:11] LABS: GLUCOSE 103 MG/DL (70-105); TOTAL PROTEIN 7.1 GM/DL (6.4-8.2)
[2022-01-02 14:12] LABS: BILIRUBIN,TOTAL 0.3 MG/DL (0.1-1.0); CARBON DIOXIDE 23 MMOL/L (21-32)
[2022-01-02 14:14] LABS: ALKALINE PHOSPHATASE 72 U/L (40-136); CREATININE SERUM 0.84 MG/DL (0.60-1.30); GFR ESTIMATED 125
[2022-01-02 14:15] LABS: BUN/CREATININE RATIO 19
[2022-01-02] MEDS ORDERED: NS 100 ML (IVPB) BAG IV ONE (14:15)
[2022-01-02] MEDS ORDERED: HOLD METFORMIN - RECEIVED CONTRAST 20 ML VIAL IV SCH (14:15)
[2022-01-02] MEDS ORDERED: IOHEXOL 350 MG/ML 100 ML (OMNIPAQUE 350) VIAL IV ONE (14:15)
[2022-01-02 14:17] LABS: ALANINE AMINOTRANSFERASE 23 U/L (0-55)
--- NOTE | 2022-01-02 14:18 | Diagnostic Imaging Report ---
PROCEDURE: CT head wo r/o stroke. TECHNIQUE: Multiple contiguous axial images were obtained through the brain without the use of intravenous contrast. Auto Exposure Controls were utilized during the CT exam to meet ALARA standards for radiation dose reduction. INDICATION: Headache and visual changes. COMPARISON: Prior head CT from 04/19/2016. FINDINGS: The ventricles and sulci are within normal limits. No sulcal effacement or midline shift is identified. No acute intra-axial or extra-axial hemorrhage is detected. The cisterns are patent. The visualized paranasal sinuses are clear apart from a mucous retention cyst or polyp in the left maxillary sinus. IMPRESSION: No acute intracranial process is detected. Dictated by: Dictated on workstation # [id number]
--- NOTE | 2022-01-02 14:26 | Diagnostic Imaging Report ---
PROCEDURE: CT angiography of the head and CT angiography of the neck with and without contrast. TECHNIQUE: Contiguous noncontrast images were obtained from the skull base through the vertex. After intravenous contrast administration, helical CT angiography of the neck was performed. Source data was reformatted into 3D MIP projections. Delayed post contrast acquisition was also obtained. Auto Exposure Controls were utilized during the CT exam to meet ALARA standards for radiation dose reduction. INDICATION: Headache and visual changes. FINDINGS: Delayed post contrast images through the brain show no enhancing lesion. CT angiographic portion of the exam demonstrates a three-vessel branching pattern to the aortic arch. The right common carotid artery is widely patent. Left common carotid artery is widely patent. Both carotid bifurcations are unremarkable. The right and left internal carotid arteries are widely patent. The M1 and M2 segments of both the right and left middle cerebral arteries are widely patent. No large vessel occlusion is seen. There is no thromboembolism. Right and left anterior cerebral arteries are widely patent. Right and left posterior cerebral arteries are patent. The left vertebral artery is dominant. Both the right and left vertebral arteries are widely patent. No definite aneurysm or vascular malformation is identified. IMPRESSION: Unremarkable CT angiogram of the head and neck. Dictated by: Dictated on workstation # [id number]
[2022-01-02 14:27] LABS: FIBRIN DEGRADATION PRODUCTS <= 0.27 UG/ML (0.00-0.49); PARTIAL THROMBOPLASTIN TIME 28 SEC (24-35); PROTHROMBIN TIME PATIENT 13.3 SEC (12.2-14.7)
--- NOTE | 2022-01-02 14:28 | Diagnostic Imaging Report ---
INDICATION: Headache and visual changes. TIME OF EXAM: 02:17 p.m. COMPARISON: Correlation is made with prior chest from 04/19/2016. FINDING: The heart size is normal. The pulmonary vascularity is unremarkable. The lungs are clear. No infiltrate, effusion or pneumothorax is detected. IMPRESSION: No acute cardiopulmonary process is detected. Dictated by: Dictated on workstation # [id number]
[2022-01-02] MEDS ORDERED: TROPICAMIDE 1% OPH SOLN (MYDRIACYL) 3 ML BTL OU ONE (14:45)
[2022-01-02] MEDS ORDERED: KETOROLAC 30 MG/ML VIAL IVP ONE (15:00)
== END 2022-01-02 15:31 | disposition home or self-care (01) ==
LOC: EDUNIT# 12:59 → ER 13:01
DX: H54.62 Unqualified visual loss, left eye, normal vision right eye (principal); R51.9 Headache, unspecified
CPT/HCPCS: 36415; 70450; 70496; 70498; 71045; 80053; 84484; 85025; 85379; 85610; 85652; 85730; 86141; 93005

== ENCOUNTER → 2022-01-12 | Outpatient (CLI) | payer OTHER ==
--- NOTE | 2022-01-12 15:14 | Diagnostic Imaging Report ---
PROCEDURE: MR imaging of the brain without contrast. TECHNIQUE: Multiplanar, multisequence MR imaging of the brain was performed without contrast. INDICATION: Blurred vision and headaches. FINDINGS: The ventricles and sulci are within normal limits. There is no diffusion restriction. The normal expected flow-voids within the carotid siphons are seen. No white matter changes are identified. No acute intra-axial or extra-axial hemorrhage is detected. The corpus callosum is unremarkable. The sellar and parasellar structures are unremarkable. There is a moderate amount of mucosal thickening of the right maxillary sinus as well as right-sided ethmoid air cells. There appears to be a mucous retention cyst or polyp in the left maxillary sinus. IMPRESSION: Essentially unremarkable noncontrast MRI of the brain apart from paranasal sinus mucosal disease. Dictated by: Dictated on workstation # [id number]
== END ==
LOC: RAD 13:15
PROVIDERS: ATTEND Optometrist
DX: H46.12 Retrobulbar neuritis, left eye (principal); H53.459 Other localized visual field defect, unspecified eye
CPT/HCPCS: 70551

== ENCOUNTER 2022-11-09 18:12 | Emergency (ER) | payer OTHER ==
[~2022-11-09] VITALS: Ht 167.7 cm; Wt 79.8 kg
[2022-11-09 18:28] VITALS: BP 167/83
[2022-11-09] MEDS ORDERED: RX-DIAZEPAM 5 MG (VALIUM) TAB PPK#4 PO STA (19:32)
--- NOTE | 2022-11-09 19:37 | ED Psychosocial ---
General Chief Complaint: Psych/Social Disorder Stated Complaint: PANIC ATTACK Nursing Triage Note: PT AMBULATE TO TRIAGE WITH C/O PANIC ATTACKS AT NIGHT. PT STATES HE WAS STARTED ON A NEW MEDICATION AND THAT IT IS CAUSING PANIC ATTACKS AT NIGHT. PT STATES HE IS AFRAID TO GO TO SLEEP. PT STATES HE STARTED TAKING HYDROXYZINE WITH HIS ABILIFY AND THAT IS WHEN THE PANIC ATTACKS STARTED. Source: patient Exam Limitations: no limitations History of Present Illness Date Seen by Provider: Nov 09, 2022 Time Seen by Provider: 19:33 Initial Comments To ER with reports of panic attacks awakening him from sleep. He recently saw his primary care provider at [facility] and was given a prescription for Abilify 10 mg and Vistaril 25 mg 3 times daily. He has had some trouble finding the right balance as initially the Abilify made him sleepy during the day so he started taking it at night and took the hydroxyzine with it but only took a half of a hydroxyzine tablet. He then awakened a few hours later very anxious and has been awake since 1 AM last night. He states this was all precipitated by losing both of his parents to a brain cancer within recent months and he also had twin boys recently. Timing/Duration: constant Severity: moderate Associated Symptoms: anxiety, insomnia Allergies and Home Medications Allergies Coded Allergies: venom-honey bee (Verified Allergy, Unknown, 04/12/15) Patient Home Medication List Home Medication List Reviewed: Yes Amoxicillin/Potassium Clav (Augmentin 875-125 Tablet) 1 Each Tablet, 1 EACH PO BID Prescribed by: NAIF CALIX on 10/06/18 1420 Naproxen (Naprosyn) 500 Mg Tablet, 500 MG PO BID Prescribed by: TOM GRAYSON on 04/10/20 0833 Tramadol HCl (Ultram) 50 Mg Tablet, 50 MG PO Q6H PRN for PAIN-MODERATE TO SEVERE Prescribed by: DIONI RIOS on 12/15/18 1118 Review of Systems Constitutional: see HPI Past Mljidwn-Jnnuvm-Geeygf Hx Patient Social History Tobacco Use?: No Smoking Status: Never a Smoker Smokeless Tobacco Frequency: Never a User Use of E-Cig and/or Vaping dev: Yes E-Cig or Vaping type used: Other Additional E-Cig or Vaping: JUICE Use of E-Cig and/or Vaping Arias: Current Everyday User Substance use?: No Alcohol Use?: No Pt feels they are or have been: No Immunizations Up To Date Tetanus Booster (TDap): More than 5yrs PED Vaccines UTD: Yes Second COVID19 Vaccination Liu: unknown date Seasonal Allergies Seasonal Allergies: Yes Past Medical History Surgeries: Yes (BMT'S; CIRCUMCISION) Ear Surgery Respiratory: Yes (USES INHALER PRN) Asthma Currently Using CPAP: No Currently Using BIPAP: No Cardiac: Yes (CHRONIC CHEST WALL PAIN; SUBJECTIVE ARRHYTHMIA/PALPITATIONS) Angina Neurological: Yes Reproductive Disorders: No Sexually Transmitted Disease: No HIV/AIDS: No Gastrointestinal: No Ulcer 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 8.0oz. 68.012795qt; 28.00 BMI Method:Stated General Appearance: WD/WN, no apparent distress HEENT: PERRL/EOMI, normal ENT inspection Respiratory: no respiratory distress, no accessory muscle use Cardiovascular: regular rate, rhythm, no murmur Gastrointestinal: normal bowel sounds, non tender, soft Neurologic/Psychiatric: alert, normal mood/affect, oriented x 3 Appearance/Memory: appropriate appearance, appropriate insight, neat Behavior/Eye Contact: cooperative, good eye contact, normal speech Thoughts/Hallucinations: normal thought pattern, no apparent hallucination Skin: normal color, warm/dry Progress/Results/Core Measures Results/Orders My Orders Orders - DIONI RIOS APRN Rx-Diazepam Tablet (Rx-Valium Tablet) (11/09/22 19:32) Vital Signs/I&O 11/09/22 18:28 Temp 36.7 Pulse 72 Resp 17 B/P (MAP) 167/83 (111) O2 Delivery Room Air Blood Pressure Mean: 111 Departure Impression Primary Impression: Anxiety Disposition: 01 HOME, SELF-CARE Condition: Stable Departure-Patient Inst. Decision time for Depature: 19:36 Referrals: [facility] (PCP) Primary Care Physician GRADY RUIZ APRN (Family) Primary Care Physician Patient Instructions: Panic Disorder (DC) Add. Discharge Instructions: Take medication at bedtime as needed as given in the emergency room. Follow-up with your regular doctor next week. All discharge instructions reviewed with patient and/or family. Voiced understanding. DIONI RIOS APRN Nov 09, 2022 19:37
== END 2022-11-09 19:39 | disposition home or self-care (01) ==
LOC: EDUNIT# 18:12 → ER 18:15
DX: F41.9 Anxiety disorder, unspecified (principal); F17.290 Nicotine dependence, other tobacco product, uncomplicated
CPT/HCPCS: 99283